=== PATIENT | male | born 1985 | race Caucasian/White ===

== ENCOUNTER 2022-12-06 11:26 | Outpatient (AMB) | payer BC, SELFPAY ==
[2022-12-06 11:29] VITALS: BP 110/80; PULSE 73; O2SAT 99; BMI 29.2
--- NOTE | 2022-12-06 11:29 | A.OFFPC_ITS ---
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 Allergies No Known Allergies Allergy (Verified 12/06/22 11:47) Medication List - Last Reconciled 12/06/22 by YADI Alexander Adderall XR 20 mg (dextroamphetamine-amphetamine) 20 mg PO QAM 30 days NS albuterol sulfate 90 mcg/actuation (ProAir HFA) 2 puffs inhalation Q6H PRN citalopram 30 mg (1.5 x 20 mg) PO DAILY 90 days montelukast 10 mg PO QPM Tobacco use date assessed: 12/06/22 Dental Screening Dental Screen Date: 12/06/22 Did you have a dental visit in the last 12 months?: No Did you have a dental problem in the last 6 months where you did not have access to dental care?: No HPI HPI Comments History of Present Illness Details 37-year-old male past medical history significant for ADHD, asthma, generalized anxiety disorder. Patient of [place] last seen in May. Patient presents today for medication follow up. Patient requesting new prescription for Adderall XR 20 mg daily will allow for substitutions for the generic brand. Patient states he previously tolerated generic brand of lateral however due to the previous shortage he was requiring name brand.New prescription sent stating to allow for substitutions. Patient denies any acute complaints at this time. [facility] Medical History Asthma Mood disorder Tobacco abuse Surgical History No pertinent past surgical history Family History Father Alcoholism Mother No problems noted. Paternal Grandfather Prostate cancer Social History Housing: Apartment Patient Tobacco Use Status: Current everyday Tobacco user Tobacco use type: Cigarette Cigarettes Per Day: 12 e-Cigarette/Vaping Use: Never Used Second Hand Smoke Exposure: No service: No Current occupational status: employed Cognitive needs: No Hearing needs: No Vision needs: No Questionnaire Thrive Questionnaire Date Thrive assessed: 05/22/22 AUDIT C Alcohol Use Questionnaire (AUDIT-C) 1. How often do you have a drink containing alcohol?: Never 3. How often do you have six or more drinks on one occasion?: Never Total Score: 0 Score Reviewed/Action Taken: No DAVID-7 AMB Questionnaire DAVID-7 Date DAVID - 7 assessed: 05/22/22 Source: Developed by Drs. Reynold Amaya, Shanice Ngo, Huey Rivas and colleagues, with an educational letty from [email or web address]. Review of Systems Const Denies chills, Denies fatigue, Denies fever(s) and Denies poor appetite Eyes Denies no additional complaints ENT Reports Normal hearing present Card Denies chest pain, Denies syncope, Denies rapid heart rate and Denies dyspnea Resp Denies cough and Denies dyspnea GI Denies change in stool character, Denies constipation, Denies diarrhea, Denies nausea and Denies vomiting Denies dysuria, Denies urinary frequency and Denies urinary urgency Neuro Reports Normal hearing present, Denies confusion and Denies syncope Psych Denies confusion Endo Denies fatigue Physical exam (Primary Care) Vital Signs: Last Vital Signs Pulse 73 12/06/22 11:29 BP 110/80 12/06/22 11:29 Pulse Ox 99 12/06/22 11:29 Oxygen Delivery Method Room Air 12/06/22 11:29 BMI result Body Mass Index 29.2 Tobacco/Smoking Status: Tobacco use Status Tobacco use date assessed 12/06/22 12/06/22 11:34 Patient Tobacco Use Status Current everyday Tobacco 12/06/22 11:34 Tobacco use type Cigarette 12/06/22 11:34 e-Cigarette/Vaping Use Never Used 12/06/22 11:34 Thrive Assessment: Date of Thrive Assessment Date Thrive assessed 05/22/22 12/06/22 11:34 Const General: No confusion Orientation/consciousness: No confusion HENMT Head: Yes normocephalic and Yes atraumatic Eyes Conjunctivae: conjunctivae normal Chest Chest palpation & inspection: normal inspection of the chest Resp Effort & Inspection: normal respiratory effort Auscultation: clear to auscultation bilaterally, no crackles, no rhonchi and no wheezes Cardio Rate: regular rate Rhythm: regular rhythm Heart sounds: S1 normal heart sound present and S2 normal heart sound present GI Inspection: Yes normal to inspection Neuro General: No confusion Cranial nerves: Yes Normal hearing present Extrem General: No edema Assessment and Plan Assessment & Plan (1) Asthma: Code(s): J45.909 - Unspecified asthma, uncomplicated Plan: Continue on albuterol as needed for shortness of breath and wheezing. (2) ADHD (attention deficit hyperactivity disorder): Code(s): F90.9 - Attention-deficit hyperactivity disorder, unspecified type Qualifiers: Attention deficit-hyperactivity disorder type: predominantly inattentive Qualified Code(s): F90.0 - Attention-deficit hyperactivity disorder, predominantly inattentive type Plan: Continue on Adderall XR 20 mg daily. Prescription sent to lab substitutions for generic brand Adderall as requested by patient. (3) Generalized anxiety disorder: Code(s): F41.1 - Generalized anxiety disorder Plan: Continue on citalopram 30 mg daily. Plan Follow-up with PCP in 3 months. Medications: Changed From Adderall XR 20 mg (dextroamphetamine-amphetamine) 20 mg PO QAM 30 days 30 caps 0RF NS F90.9 - Attention-deficit hyperactivity disorder, unspecified type To dextroamphetamine-amphetamine 20 mg ER (Adderall XR) 20 mg PO QAM 30 caps 0RF 30 days F90.9 - Attention-deficit hyperactivity disorder, unspecified type Coding Level of Care Code Est Pt Level 3 (14642) Diagnoses Asthma J45.909 ADHD (attention deficit hyperactivity disorder) F90.0 Attention deficit-hyperactivity disorder type: predominantly inattentive Generalized anxiety disorder F41.1
== END 2022-12-06 11:55 | disposition home or self-care (01) ==
PROVIDERS: PCP Physician Assistant; Visit Provider Nurse Practitioner Family
DX: J45.909 Unspecified asthma, uncomplicated (principal); F90.0 Attention-deficit hyperactivity disorder, predominantly inattentive type; F41.1 Generalized anxiety disorder
CPT/HCPCS: 99213

== ENCOUNTER 2023-01-03 14:43 | Outpatient (AMB) | payer BC, SELFPAY ==
[2023-01-03 14:52] VITALS: BP 118/72; PULSE 70; O2SAT 99; BMI 29.1
--- NOTE | 2023-01-03 14:52 | MHC.PC.OV ---
Vital Signs 01/03/23 14:52 Height 5 ft 9 in Weight 197 lb 2 oz BMI 29.1 BP 118/72 Blood Pressure Location Lt brachial Position Sitting Pulse 70 Pulse Source Pulse Oximeter Pulse Oximetry (%) 99 Oxygen Delivery Method Room Air Intake Visit Reasons: PE Intake Note: Patient is here today for a physical. 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 Accompanied by: Self / Same As Patient Allergies No Known Allergies Allergy (Verified 01/03/23 15:08) Medication List - Last Reconciled 01/03/23 by Dima Hill PA-C albuterol sulfate 90 mcg/actuation (ProAir HFA) 2 puffs inhalation Q6H PRN citalopram 30 mg (1.5 x 20 mg) PO DAILY 90 days dextroamphetamine-amphetamine 20 mg ER (Adderall XR) 20 mg PO QAM 30 days Tobacco use date assessed: 12/06/22 Dental Screening Dental Screen Date: 01/03/23 Did you have a dental visit in the last 12 months?: No Did you have a dental problem in the last 6 months where you did not have access to dental care?: No Was dental information given to patient?: Patient declined HPI PE HPI Details Patient is a 37-year-old male here today for an annual physical. Patient's past medical history significant for ADHD, asthma, generalized anxiety disorder... . ADHD: Has had ADHD since childhood has been on Adderall for many years. Continues on will dose 20 mg Adderall without any side effect. Continues to hold a full-time job. .. Smoker: Does admit to still smoking electronic cigarettes vape. Has stop smoking cigarettes. Vaccines: Up-to-date with COVID vaccine, tetanus vaccine, Declines flu vaccine [facility] Medical History Asthma Mood disorder Tobacco abuse Surgical History No pertinent past surgical history Family History Father Alcoholism Mother No problems noted. Paternal Grandfather Prostate cancer Social History (Updated 01/03/23 @ 15:12 by Dima Hill PA-C) Housing: Apartment Alcohol intake: never Patient Tobacco Use Status: Current everyday Tobacco user Tobacco use type: Cigarette Cigarettes Per Day: 12 e-Cigarette/Vaping Use: Never Used Second Hand Smoke Exposure: No Substance Use Type: Marijuana service: No Current occupational status: employed Current occupation: [employer] Cognitive needs: No Hearing needs: No Vision needs: No Questionnaire Thrive Questionnaire Date Thrive assessed: 05/22/22 DAVID-7 AMB Questionnaire DAVID-7 Date DAVID - 7 assessed: 05/22/22 Source: Developed by Drs. Reynold Amaya, Shanice Ngo, Huey Rivas and colleagues, with an educational letty from [employer]. Physical exam (Primary Care) Vital Signs: Last Vital Signs Pulse 70 01/03/23 14:52 BP 118/72 01/03/23 14:52 Pulse Ox 99 01/03/23 14:52 Oxygen Delivery Method Room Air 01/03/23 14:52 BMI result Body Mass Index 29.1 Tobacco/Smoking Status: Tobacco use Status Tobacco use date assessed 12/06/22 01/03/23 14:56 Patient Tobacco Use Status Current everyday Tobacco 01/03/23 14:56 Tobacco use type Cigarette 01/03/23 14:56 e-Cigarette/Vaping Use Never Used 01/03/23 14:56 Thrive Assessment: Date of Thrive Assessment Date Thrive assessed 05/22/22 01/03/23 14:56 Assessment and Plan Assessment & Plan (1) Physical exam: Comment: Reminded pt to get labs done Due for dental and eye exam Code(s): Z00.00 - Encounter for general adult medical examination without abnormal findings (2) ADHD (attention deficit hyperactivity disorder): Code(s): F90.9 - Attention-deficit hyperactivity disorder, unspecified type Qualifiers: Attention deficit-hyperactivity disorder type: predominantly inattentive Qualified Code(s): F90.0 - Attention-deficit hyperactivity disorder, predominantly inattentive type Plan: Patient continues on 20 mg Adderall over the last several years without any side effect or signs of abuse. Continues to work full-time. Will continue current dose of Adderall for his ADHD disorder. (3) Asthma: Code(s): J45.909 - Unspecified asthma, uncomplicated Qualifiers: Asthma severity: mild Asthma persistence: intermittent Asthma complication type: uncomplicated Qualified Code(s): J45.20 - Mild intermittent asthma, uncomplicated Plan: Asthma has been very well controlled with only p.r.n. use of albuterol inhaler. He reports stops smoking cigarettes and now vaping (4) Generalized anxiety disorder: Code(s): F41.1 - Generalized anxiety disorder Plan: Patient reports his anxiety has been well controlled current dose of Celexa 30 mg. (5) Weight loss: Code(s): R63.4 - Abnormal weight loss Plan: Has noted weight loss over the last 6 months a year. Does not note any change in activity or diet. Will check his TSH and CBC. Orders: Orders Comprehensive [place]. Panel Fast Today Z13.1 - Encounter for screening for diabetes mellitus TSH reflex Free T4 Today R63.4 - Abnormal weight loss Complete Blood Count no Diff Today R63.4 - Abnormal weight loss Medications: Refilled dextroamphetamine-amphetamine 20 mg ER (Adderall XR) 20 mg PO QAM 30 caps 0RF 30 days F90.9 - Attention-deficit hyperactivity disorder, unspecified type Coding Level of Care Code Est Pt Prev Care 18-39y([id number]) Diagnoses Physical exam Z00.00 ADHD (attention deficit hyperactivity disorder) F90.0 Attention deficit-hyperactivity disorder type: predominantly inattentive Asthma J45.20 Asthma severity: mild Asthma persistence: intermittent Asthma complication type: uncomplicated Generalized anxiety disorder F41.1 Weight loss R63.4
== END 2023-01-03 16:08 | disposition home or self-care (01) ==
PROVIDERS: PCP Physician Assistant; Visit Provider Physician Assistant
DX: Z00.00 Encounter for general adult medical examination without abnormal findings (principal); F90.0 Attention-deficit hyperactivity disorder, predominantly inattentive type; J45.20 Mild intermittent asthma, uncomplicated; F41.1 Generalized anxiety disorder; R63.4 Abnormal weight loss
CPT/HCPCS: 99395

== ENCOUNTER 2023-01-19 09:38 | Outpatient (REF) | payer BC, SELFPAY ==
[2023-01-19 10:31] LABS: Hematocrit 39.8 % (42.0-52.0); Hemoglobin 13.4 g/dl (14.0-18.0); Mean Corpuscular HGB Conc 33.7 g/dl (31.0-36.0); Mean Corpuscular Hemoglobin 29.5 pg (27.0-33.0); Mean Corpuscular Volume 87.5 fL (80.0-98.0); Mean Platelet Volume 9.4 fL (9.4-12.4); Platelet Count 253 X10*3/uL (160-400); Red Blood Count 4.55 X10*6/uL (4.60-5.80); White Blood Count 5.1 X10*3/uL (4.8-10.8)
[2023-01-19 11:28] LABS: Alanine Aminotransferase 17 U/L (0-40); Albumin Level 4.3 g/dL (3.5-5.0); Alkaline Phosphatase 42 U/L (39-117); Anion Gap 10 (12-20); Aspartate Amino Transferase 14 U/L (5-37); Bilirubin Total 0.5 mg/dL (0.0-1.0); Blood Urea Nitrogen 15 mg/dL (9-16); Calcium 9.3 mg/dL (8.4-10.2); Carbon Dioxide 29 mmol/L (22-29); Chloride 107 mmol/L (96-108); Estimated Glomerular Filt Rate > 60; Glucose Fasting 89 mg/dL (60-99); Potassium 4.3 mmol/L (3.3-5.1); Sodium 142 mmol/L (135-145)
[2023-01-19 11:34] LABS: TSH reflex Free T4 0.28 uIU/mL (0.32-4.0)
[2023-01-19 12:44] LABS: Free T4 (Free Thyroxine) 0.92 ng/dL (0.71-1.85)
== END 2023-01-19 09:39 | disposition home or self-care (01) ==
LOC: HO.LAB 09:38
PROVIDERS: PCP Physician Assistant; Visit Provider Physician Assistant
DX: Z13.1 Encounter for screening for diabetes mellitus (principal); R63.4 Abnormal weight loss
CPT/HCPCS: 36415; 80053; 84439; 84443; 85027

== ENCOUNTER 2023-07-08 13:18 | Outpatient (AMB) | payer BC, SELFPAY ==
[2023-07-08 13:22] VITALS: BP 122/70; PULSE 62; RESP 17; O2SAT 98; BMI 29.6
--- NOTE | 2023-07-08 13:22 | A.OFFPC_ITS ---
Vital Signs 07/08/23 13:22 Height 5 ft 9 in Weight 200 lb 4 oz BMI 29.6 BP 122/70 Blood Pressure Location Lt brachial Position Sitting Respiration 17 Pulse 62 Pulse Source Pulse Oximeter Pulse Oximetry (%) 98 Oxygen Delivery Method Room Air Intake Visit Reasons: ADHD medication F/U Shipping Assistant Required: No Accompanied by: Self / Same As Patient Allergies No Known Allergies Allergy (Verified 07/08/23 13:33) Medication List - Last Reconciled 07/08/23 by Dima Hill PA-C albuterol sulfate 90 mcg/actuation (ProAir HFA) 2 puffs inhalation Q6H PRN citalopram 30 mg (1.5 x 20 mg) PO DAILY 90 days dextroamphetamine-amphetamine 20 mg ER (Adderall XR) 20 mg PO QAM 30 days Tobacco use date assessed: 07/08/23 Dental Screening Dental Screen Date: 07/08/23 Did you have a dental visit in the last 12 months?: No Did you have a dental problem in the last 6 months where you did not have access to dental care?: No Was dental information given to patient?: No HPI ADHD medication F/U HPI Details atient is a 30-year-old male here today for follow-up visit Patient's past medical history significant for ADHD, asthma, generalized anxiety disorder... . ADHD: Has had ADHD since childhood has been on Adderall for many years. Continues on will dose 20 mg Adderall without any side effect. Continues to hold a full-time job. .. Smoker: Does admit to still smoking electronic cigarettes vape. [facility] Medical History Mood disorder Tobacco abuse Asthma Surgical History No pertinent past surgical history Family History Father Alcoholism Mother No problems noted. Paternal Grandfather Prostate cancer Social History Housing: Apartment Alcohol intake: never Patient Tobacco Use Status: Current everyday Tobacco user Tobacco use type: Cigarette Cigarettes Per Day: 12 e-Cigarette/Vaping Use: Never Used Second Hand Smoke Exposure: No Substance Use Type: Marijuana service: No Current occupational status: employed Current occupation: [employer] Cognitive needs: No Hearing needs: No Vision needs: No Questionnaire PHQ-9 Over the last 2 weeks, how often have you been bothered by any of the following problems? 1. Little interest or pleasure in doing things: not at all 2. Feeling down, depressed, or hopeless: not at all 3. Trouble falling or staying asleep, or sleeping too much: not at all 4. Feeling tired or having little energy: not at all 5. Poor appetite or overeating: not at all 6. Feeling bad about yourself - or that you are a failure or have let yourself or your family down: not at all 7. Trouble concentrating on things, such as reading the newspaper or watching television: not at all 8. Moving or speaking so slowly that other people could have noticed. Or the opposite - being so fidgety or restless that you have been moving around a lot more than usual: not at all 9. Thoughts that you would be better off or of hurting yourself in some way: not at all Total score: 0 Depression Screening Interpretation: Negative Depression Screening Done: Yes [id number] - PHQ-9 Billing: Yes Source: Developed by Drs. Reynold Amaya, Shanice Ngo, Huey Rivas and colleagues, with an educational letty from [employer]. Thrive Questionnaire Date Thrive assessed: 07/08/23 I am a: Patient What is your living situation today?: I have a steady place to live Within the past 12 months, did the food you bought not last and you didn't have the money to get more?: Never true Within the past 12 months, did you worry whether your food would run out before you got money to buy more?: Never true Do you have trouble paying for medicines?: No Do you have trouble getting transportation to medical appointments?: No Do you have trouble paying your heating and electricity bill?: No Do you have trouble taking care of your child, family member or friend?: No Do you have trouble with day-to-day activities such as bathing, preparing meals, shopping, managing finances, etc.?: No Are you currently unemployed and looking for a job?: No Are you interested in more education?: No Please select the resources that you would like help with: None Currently or been in a relationship where the following occur: no concerns repo rted THRIVE Score: 0 AUDIT C Alcohol Use Questionnaire (AUDIT-C) 1. How often do you have a drink containing alcohol?: Never 3. How often do you have six or more drinks on one occasion?: Never Total Score: 0 Score Reviewed/Action Taken: No DAVID-7 AMB Questionnaire DAVID-7 Date DAVID - 7 assessed: 07/08/23 Feeling nervous, anxious, or on edge: 0 = Not at all Not being able to stop or control worryin = Not at all Worrying too much about different things: 0 = Not at all Trouble relaxin = Not at all Being so restless that it is hard to sit still: 0 = Not at all Becoming easily annoyed or irritable: 0 = Not at all Feeling afraid as if something awful might happen: 0 = Not at all Total DAVID-7 score (0-4 normal; 5-9 mild; 10-14 moderate; 15-21 severe): 0 Source: Developed by Drs. Reynold Amaya, Shanice Ngo, Huey Rivas and colleagues, with an educational letty from [employer]. DAVID-7 Assessment Billing DAVID-7 Assessment Tool: DAVID-7 Assessment [id number] Review of Systems Const Denies headache(s) Eyes Denies loss of vision ENT Denies vertigo, Denies dizziness, Denies headache(s) and Denies sore throat Card Denies chest pain, Denies leg edema and Denies lightheadedness Resp Denies cough, Denies hemoptysis and Denies wheezing GI Denies abdominal pain, Denies melena, Denies constipation, Denies diarrhea and Denies vomiting Denies dysuria, Denies urinary frequency and Denies urinary urgency Musc Denies arthralgias, Denies joint swelling, Denies numbness and Denies tingling Neuro Denies Abnormal speech present, Denies behavioral changes, Denies vertigo, Denies dizziness, Denies headache(s), Denies loss of vision, Denies memory loss, Denies numbness and Denies tingling Psych Denies anxiety, Denies behavioral changes, Denies depression, Denies memory loss and Denies panic attacks Reid/Lymph Denies easy bleeding and Denies easy bruising Aller/Immun Denies wheezing Physical exam (Primary Care) Vital Signs: Last Vital Signs Pulse 62 07/08/23 13:22 Resp 17 07/08/23 13:22 BP 122/70 07/08/23 13:22 Pulse Ox 98 07/08/23 13:22 Oxygen Delivery Method Room Air 07/08/23 13:22 BMI result Body Mass Index 29.6 Tobacco/Smoking Status: Tobacco use Status Tobacco use date assessed 07/08/23 07/08/23 13:27 Patient Tobacco Use Status Current everyday Tobacco 07/08/23 13:27 Tobacco use type Cigarette 07/08/23 13:27 e-Cigarette/Vaping Use Never Used 07/08/23 13:27 PHQ-9: PHQ-9 Score PHQ-9: Total score 0 07/08/23 13:27 Depression Screening Interpretation: Negative Thrive Assessment: Date of Thrive Assessment Date Thrive assessed 07/08/23 07/08/23 13:27 Currently or been in a relationship where the following occur: no concerns reported Const General: healthy appearing, no acute distress, alert and awake Nutritional Appearance: well nourished Orientation/consciousness: oriented to person, oriented to place and oriented to time HENMT Ears: TM's normal bilaterally General nose exam: Normal nasal mucous membranes and turbinates present Eyes Conjunctivae: conjunctivae normal Sclerae: sclerae normal Pupils: Equal, round and reactive pupils present Neck Neck: Yes no lymphadenopathy and Yes no JVD Thyroid: Thyroid normal Carotids: no bruits Resp Effort & Inspection: normal respiratory effort and not tachypneic Auscultation: no crackles, no rales, no rhonchi and no wheezes Cardio Rate: regular rate Rhythm: regular rhythm Heart sounds: no murmurs and normal S1 and S2 GI Palpation (GI): Soft to palpation, nontender, no hepatomegaly and no splenomegaly Auscultation: normal bowel sounds Skin General skin exam: no rashes or lesions noted and dry skin Neuro General: oriented to person, oriented to place and oriented to time Cranial nerves: Yes Equal, round and reactive pupils present Speech: No Abnormal speech present Gait exam (Neuro): Normal gait present Motor exam (neuro): no tremor noted Extrem Right upper extremity: full ROM Left upper extremity: full ROM Right lower extremity: full ROM; no edema Left lower extremity: full ROM; no edema Psych Mental Status: mental status grossly normal Speech and movement: Normal speech and movement present Affect: normal affect Attitude: cooperative Thought process: Normal thought process present Assessment and Plan Assessment & Plan (1) ADHD (attention deficit hyperactivity disorder): Code(s): F90.9 - Attention-deficit hyperactivity disorder, unspecified type Qualifiers: Attention deficit-hyperactivity disorder type: predominantly inattentive Qualified Code(s): F90.0 - Attention-deficit hyperactivity disorder, predominantly inattentive type Plan: Patient continues on 20 mg Adderall over the last several years without any side effect or signs of abuse. Continues to work full-time. Will continue current dose of Adderall for his ADHD disorder. Orders: Orders TSH reflex Free T4 Today R79.89 - Other specified abnormal findings of blood chemistry Medications: Refilled dextroamphetamine-amphetamine 20 mg ER (Adderall XR) 20 mg PO QAM 30 days 30 caps 0RF F90.9 - Attention-deficit hyperactivity disorder, unspecified type Coding Level of Care Code Est Pt Level 3 (46774) Diagnoses Attention deficit hyperactivity disorder (ADHD), predominantly inattentive type F90.0 Attention deficit-hyperactivity disorder type: predominantly inattentive Additional Codes DAVID-7 Assessment Billing - DAVID-7 Assessment Tool: DAVID-7 Assessment [id number] ([id number])
== END 2023-07-08 13:42 | disposition home or self-care (01) ==
PROVIDERS: PCP Physician Assistant; Visit Provider Physician Assistant
DX: F90.0 Attention-deficit hyperactivity disorder, predominantly inattentive type (principal)
CPT/HCPCS: 99213

== ENCOUNTER 2023-10-08 14:16 | Outpatient (AMB) | payer BC, SELFPAY ==
--- NOTE | 2023-10-08 14:12 | MHC.PC.OV ---
Intake Visit Reasons: f/u ADHD Telehealth Measurer Machine Required: No Accompanied by: Self / Same As Patient Allergies No Known Allergies Allergy (Verified 10/08/23 14:30) Medication List - Last Reconciled 10/08/23 by Dima Hill PA-C albuterol sulfate 90 mcg/actuation (ProAir HFA) 2 puffs inhalation Q6H PRN citalopram 30 mg (1.5 x 20 mg) PO DAILY 90 days dextroamphetamine-amphetamine 20 mg ER (Adderall XR) 20 mg PO QAM 30 days Tobacco use date assessed: 07/08/23 Dental Screening Dental Screen Date: 07/08/23 HPI f/u ADHD Telehealth HPI Details Patient is a 38-year-old male being evaluated today via telephone only. Patient's past medical history significant for ADHD, asthma, generalized anxiety disorder... . ADHD: Has had ADHD since childhood has been on Adderall for many years. Continues on will dose 20 mg Adderall without any side effect. Continues to hold a full-time job. .. Smoker: Does admit to still smoking electronic cigarettes vape. Does report needing a refill on his albuterol inhaler as he reports that during allergy season he likes to have an albuterol inhaler due allergy related cough PFSH Medical History Mood disorder Tobacco abuse Asthma Surgical History No pertinent past surgical history Family History Father Alcoholism Mother No problems noted. Paternal Grandfather Prostate cancer Social History Housing: Apartment Alcohol intake: never Patient Tobacco Use Status: Current everyday Tobacco user Tobacco use type: Cigarette Cigarettes Per Day: 12 e-Cigarette/Vaping Use: Never Used Second Hand Smoke Exposure: No Substance Use Type: Marijuana service: No Current occupational status: employed Current occupation: [employer] Cognitive needs: No Hearing needs: No Vision needs: No Questionnaire Thrive Questionnaire Date Thrive assessed: 07/08/23 DAVID-7 AMB Questionnaire DAVID-7 Date DAVID - 7 assessed: 07/08/23 Source: Developed by Drs. Reynold Amaya, Shanice Ngo, Huey Rivas and colleagues, with an educational letty from [employer]. Review of Systems Const Denies headache(s) Eyes Denies loss of vision ENT Denies vertigo, Denies dizziness, Denies headache(s) and Denies sore throat Card Denies chest pain, Denies leg edema and Denies lightheadedness Resp Denies cough, Denies hemoptysis and Denies wheezing GI Denies abdominal pain, Denies melena, Denies constipation, Denies diarrhea and Denies vomiting Denies dysuria, Denies urinary frequency and Denies urinary urgency Musc Denies arthralgias, Denies joint swelling, Denies numbness and Denies tingling Neuro Denies behavioral changes, Denies vertigo, Denies dizziness, Denies headache(s), Denies loss of vision, Denies memory loss, Denies numbness and Denies tingling Psych Denies anxiety, Denies behavioral changes, Denies depression, Denies memory loss and Denies panic attacks Reid/Lymph Denies easy bleeding and Denies easy bruising Aller/Immun Denies wheezing Physical exam (Primary Care) Tobacco/Smoking Status: Tobacco use Status Tobacco use date assessed 07/08/23 10/08/23 14:12 Patient Tobacco Use Status Current everyday Tobacco 10/08/23 14:12 Tobacco use type Cigarette 10/08/23 14:12 e-Cigarette/Vaping Use Never Used 10/08/23 14:12 Thrive Assessment: Date of Thrive Assessment Date Thrive assessed 07/08/23 10/08/23 14:12 Telehealth Telehealth Telehealth Platform: Telephone Location of provider rendering services: practice address Location of patient: address on file Patient Identification confirmed using: Name, : Yes Telehealth method: voice only Patient verbally consented to treatment: Yes Patient verbally consented to billing insurance company: Yes Patient informed of any privacy concerns related to visit: Yes Minutes spent on Phone/Video with Pt.: 11 Assessment and Plan Assessment & Plan (1) ADHD (attention deficit hyperactivity disorder): Code(s): F90.9 - Attention-deficit hyperactivity disorder, unspecified type Qualifiers: Attention deficit-hyperactivity disorder type: predominantly inattentive Qualified Code(s): F90.0 - Attention-deficit hyperactivity disorder, predominantly inattentive type Plan: Patient continues on 20 mg Adderall over the last several years without any side effect or signs of abuse. Continues to work full-time. Will continue current dose of Adderall for his ADHD disorder. Medications: Refilled albuterol sulfate 90 mcg/actuation (ProAir HFA) 2 puffs inhalation Q6H PRN 8.5 grams 3RF bronchospasm J45.909 - Unspecified asthma, uncomplicated Coding Level of Care Code Tele Est Pt Level 3 (81420) Diagnoses Attention deficit hyperactivity disorder (ADHD), predominantly inattentive type F90.0 Attention deficit-hyperactivity disorder type: predominantly inattentive
== END 2023-10-08 15:31 | disposition home or self-care (01) ==
LOC: HO.HMGH 14:16
PROVIDERS: PCP Physician Assistant; Visit Provider Physician Assistant
DX: F90.0 Attention-deficit hyperactivity disorder, predominantly inattentive type (principal)
CPT/HCPCS: 99442

== ENCOUNTER 2024-01-08 07:55 | Outpatient (AMB) | payer BC, SELFPAY ==
[2024-01-08 07:58] VITALS: BP 116/68; PULSE 56; O2SAT 97; BMI 29.7
--- NOTE | 2024-01-08 07:58 | MHC.PC.OV ---
Vital Signs 01/08/24 07:58 Height 5 ft 9 in Weight 201 lb BMI 29.7 BP 116/68 Blood Pressure Location Lt brachial Position Sitting Pulse 56 Pulse Source Pulse Oximeter Pulse Oximetry (%) 97 Oxygen Delivery Method Room Air Intake Visit Reasons: PE Allergies No Known Allergies Allergy (Verified 01/08/24 08:15) Medication List - Last Reconciled 01/08/24 by Dima Hill PA-C albuterol sulfate 90 mcg/actuation (ProAir HFA) 2 puffs inhalation Q6H PRN citalopram 30 mg (1.5 x 20 mg) PO DAILY 90 days dextroamphetamine-amphetamine 20 mg ER (Adderall XR) 20 mg PO QAM 30 days Tobacco use date assessed: 01/08/24 Dental Screening Dental Screen Date: 01/08/24 Did you have a dental visit in the last 12 months?: No Did you have a dental problem in the last 6 months where you did not have access to dental care?: No Was dental information given to patient?: Patient has dentist HPI PE HPI Details Patient is a 38-year-old male here today for routine annual physical Patient's past medical history significant for ADHD, asthma, generalized anxiety disorder... . ADHD: Has had ADHD since childhood has been on Adderall for many years. Continues on will dose 20 mg Adderall without any side effect. Continues to hold a full-time job. .. Smoker: Does admit to still smoking electronic cigarettes vape. .. Asthma: Reports his asthma is very well controlled, occasion does have chest tightness at night though is controlled with an albuterol inhaler. Otherwise denies any asthma exacerbations. Vaccines: Up-to-date with COVID vaccine, tetanus vaccine, Declines flu vaccine , declines pneumonia vaccine [facility] Medical History Mood disorder Tobacco abuse Asthma Surgical History No pertinent past surgical history Family History Father Alcoholism Mother No problems noted. Paternal Grandfather Prostate cancer Social History (Updated 01/08/24 @ 08:14 by Dima Sergio, PA-C) Housing: Apartment Alcohol intake: never Patient Tobacco Use Status: Current everyday Tobacco user Tobacco use type: Cigarette Cigarettes Per Day: 12 e-Cigarette/Vaping Use: Never Used Second Hand Smoke Exposure: No Substance Use Type: Marijuana service: No Current occupational status: employed Current occupation: [employer] Cognitive needs: No Hearing needs: No Vision needs: Yes Questionnaire PHQ-9 Over the last 2 weeks, how often have you been bothered by any of the following problems? 1. Little interest or pleasure in doing things: not at all 2. Feeling down, depressed, or hopeless: not at all 3. Trouble falling or staying asleep, or sleeping too much: more than half the days 4. Feeling tired or having little energy: not at all 5. Poor appetite or overeating: not at all 6. Feeling bad about yourself - or that you are a failure or have let yourself or your family down: not at all 7. Trouble concentrating on things, such as reading the newspaper or watching television: not at all 8. Moving or speaking so slowly that other people could have noticed. Or the opposite - being so fidgety or restless that you have been moving around a lot more than usual: not at all 9. Thoughts that you would be better off or of hurting yourself in some way: not at all Total score: 2 Depression Screening Interpretation: Negative Depression Screening Done: Yes 54561 - PHQ-9 Billing: Yes Source: Developed by Drs. Reynold Amaya, Shanice Ngo, Huey Rivas and colleagues, with an educational letty from [employer]. Thrive Questionnaire Date Thrive assessed: 01/08/24 I am a: Patient What is your living situation today?: I have a steady place to live Within the past 12 months, did the food you bought not last and you didn't have the money to get more?: I choose not to answer this question Within the past 12 months, did you worry whether your food would run out before you got money to buy more?: I choose not to answer this question Do you have trouble paying for medicines?: I choose not to answer this question Do you have trouble getting transportation to medical appointments?: I choose not to answer this question Do you have trouble paying your heating and electricity bill?: I choose not to answer this question Do you have trouble taking care of your child, family member or friend?: I choose not to answer this question Do you have trouble with day-to-day activities such as bathing, preparing meals, shopping, managing finances, etc.?: I choose not to answer this question Are you currently unemployed and looking for a job?: I choose not to answer this question Are you interested in more education?: I choose not to answer this question Please select the resources that you would like help with: None Currently or been in a relationship where the following occur: I choose not to answer THRIVE Score: 0 AUDIT C Alcohol Use Questionnaire (AUDIT-C) 1. How often do you have a drink containing alcohol?: Never Total Score: 0 DAVID-7 AMB Questionnaire DAVID-7 Date DAVID - 7 assessed: 01/08/24 Feeling nervous, anxious, or on edge: 1 = Several days Not being able to stop or control worryin = Not at all Worrying too much about different things: 0 = Not at all Trouble relaxin = Not at all Being so restless that it is hard to sit still: 0 = Not at all Becoming easily annoyed or irritable: 0 = Not at all Feeling afraid as if something awful might happen: 0 = Not at all Total DAVID-7 score (0-4 normal; 5-9 mild; 10-14 moderate; 15-21 severe): 1 Source: Developed by Drs. Reynold Amaya, Shanice Ngo, Huey Rivas and colleagues, with an educational letty from [employer]. ACT Questionnaire In the past 4 weeks, how much of the time did your asthma keep you from getting as much done at work, school or at home?: None of the time During the past 4 weeks, how often have you had shortness of breath?: Not at all During the past 4 weeks, how often did your asthma symptoms wake you up at night or earlier than usual in the morning?: Once or twice per week During the past 4 weeks, how often have you had to use your rescue inhaler or nebulizer medication?: Not at all How would you rate your asthma control during the past 4 weeks?: Completely controlled ACT Interpretation: Negative Score: 24 Review of Systems Const Denies body aches, Denies chills, Denies excessive sweating, Denies fatigue, Denies fever(s) and Denies headache(s) Eyes Denies blurry vision ENT Denies dysphagia, Denies vertigo, Denies dizziness, Denies headache(s), Denies hearing loss and Denies tinnitus Card Denies chest pain, Denies chest pain with activity, Denies syncope, Denies irregular heart rhythm and Denies dyspnea Resp Denies chest congestion, Denies cough, Denies hemoptysis, Denies dyspnea and Denies wheezing GI Denies abdominal pain, Denies melena, Denies hematochezia, Denies coffee ground emesis, Denies dysphagia, Denies diarrhea, Denies nausea and Denies vomiting Denies difficulty urinating, Denies dysuria, Denies urinary frequency, Denies urinary hesitancy and Denies urinary urgency Musc Denies arthralgias, Denies limited range of motion, Denies muscle cramps and Denies muscle weakness Skin/Breast Denies rash and Denies skin ulcer Neuro Denies Abnormal speech present, Denies confusion, Denies vertigo, Denies dizziness, Denies syncope, Denies headache(s), Denies memory loss and Denies seizure-like activity Psych Denies anxiety, Denies confusion, Denies depression, Denies memory loss, Denies panic attacks and Denies paranoia Endo Denies excessive sweating, Denies fatigue, Denies flushing, Denies polydipsia and Denies polyuria Aller/Immun Denies wheezing Physical exam (Primary Care) Vital Signs: Oxygen Delivery Method Room Air 01/08/24 07:58 BMI result Body Mass Index 29.7 Tobacco/Smoking Status: Tobacco use Status Tobacco use date assessed 07/08/23 01/08/24 08:00 Patient Tobacco Use Status Current everyday Tobacco 01/08/24 08:00 Tobacco use type Cigarette 01/08/24 08:00 e-Cigarette/Vaping Use Never Used 01/08/24 08:00 Are you ready to quit: No Tobacco cessation counseling provided: Yes Items discussed: Nicotine replacement Relapse Prevention: discussed the importance of a supportive environment, discussed negative mood or depression after quitting, weight gain after smoking is common and discussed dietary, exercise and/or lifestyle changes Number of minutes spent counselin CPT code: 18436 - 4-10 Minutes Depression Screening Interpretation: Negative Thrive Assessment: Date of Thrive Assessment Date Thrive assessed 07/08/23 01/08/24 08:00 Currently or been in a relationship where the following occur: I choose not to answer Const General: cooperative, comfortable, no acute distress, alert and awake; No confusion Orientation/consciousness: oriented to person, oriented to place, patient oriented x3 and No confusion HENMT Head: Yes normocephalic Ears: external ears normal and TM's normal bilaterally Face and sinus: No sinus tenderness Mouth: Normal oral and palatal mucosa present and tongue normal Teeth and gingiva: dentition normal and gingiva normal Throat: Yes posterior oropharynx normal, Yes tonsils normal and Yes uvula midline Eyes Conjunctivae: conjunctivae normal Sclerae: sclerae normal Pupils: Equal, round and reactive pupils present EOM: EOMs intact bilaterally Direct Ophthalmoscopy: No no photophobia Neck Neck: Yes no lymphadenopathy, No tender and Yes no JVD Thyroid: Thyroid normal Carotids: no bruits Chest Chest palpation & inspection: no tenderness Resp Effort & Inspection: normal respiratory effort, no audible wheezes, not labored and no stridor Auscultation: no crackles, no rales, no rhonchi and no wheezes Cardio Jugular venous distension: no JVD Rate: regular rate, not bradycardic and not tachycardic Rhythm: regular rhythm Bruits: no carotid bruits Peripheral pulses: Peripheral pulses 2+ throughout GI Inspection: Yes normal to inspection, No abdominal wall ecchymosis and No visible herniation Palpation (GI): Soft to palpation, nontender, no guarding, not rigid and No hepatosplenomegaly present Auscultation: normoactive bowel sounds General: Yes no CVA tenderness Back/Spine/Pelvis Back: no CVA tenderness and No back tenderness Cervical Spine: cervical ROM normal Thoracic/Lumbar Spine: thoracic and lumbar spine normal to inspection, straight leg raise negative bilaterally, No thoraco-lumbar ROM limited and No lumbar spinal tenderness Skin Lesions: no lesions Rashes: no rashes Wounds: no wounds Neuro General: oriented to person, oriented to place, patient oriented x3, CN's II-XI intact bilaterally and No confusion Cranial nerves: Yes Equal, round and reactive pupils present and Yes Normal accommodation reflex present Cognition (Neuro): normal cognition Speech: No Abnormal speech present Gait exam (Neuro): Normal gait present Motor exam (neuro): 5/5 motor strength present throughout Extrem Right upper extremity: full ROM; no cyanosis Left upper extremity: full ROM; no cyanosis Right lower extremity: no edema Left lower extremity: no edema Psych Appearance: grossly normal Mental Status: mental status grossly normal Affect: normal affect Attitude: cooperative Thought process: Normal thought process present Assessment and Plan Assessment & Plan (1) Physical exam: Comment: Reminded pt to get labs done Due for dental and eye exam Code(s): Z00.00 - Encounter for general adult medical examination without abnormal findings (2) ADHD (attention deficit hyperactivity disorder): Code(s): F90.9 - Attention-deficit hyperactivity disorder, unspecified type Qualifiers: Attention deficit-hyperactivity disorder type: predominantly inattentive Qualified Code(s): F90.0 - Attention-deficit hyperactivity disorder, predominantly inattentive type Plan: Patient continues on 20 mg Adderall over the last several years without any side effect or signs of abuse. Continues to work full-time. Will continue current dose of Adderall for his ADHD disorder. (3) Asthma: Code(s): J45.909 - Unspecified asthma, uncomplicated Qualifiers: Asthma severity: mild Asthma persistence: intermittent Asthma complication type: uncomplicated Qualified Code(s): J45.20 - Mild intermittent asthma, uncomplicated Plan: Asthma has been very well controlled with only p.r.n. use of albuterol inhaler. Unfortunately patient continues to vape cigarettes (4) Generalized anxiety disorder: Code(s): F41.1 - Generalized anxiety disorder Plan: Patient reports his anxiety has been well controlled current dose of Celexa 30 mg. (5) Low TSH level: Code(s): R79.89 - Other specified abnormal findings of blood chemistry Plan: Was found to have low TSH in the fall of 2022, advised to repeat lab testing to evaluate TSH. Normal T4 noted. Orders: Orders Complete Blood Count no Diff Today Z13.1 - Encounter for screening for diabetes mellitus Comprehensive [place]. Panel Fast Today Z13.1 - Encounter for screening for diabetes mellitus Coding Level of Care Code Est Pt Prev Care [id number]([id number]) Diagnoses Physical exam Z00.00 Attention deficit hyperactivity disorder (ADHD), predominantly inattentive type F90.0 Attention deficit-hyperactivity disorder type: predominantly inattentive Mild intermittent asthma without complication J45.20 Asthma severity: mild Asthma persistence: intermittent Asthma complication type: uncomplicated Generalized anxiety disorder F41.1 Low TSH level R79.89 Additional Codes Vital Signs *Quality* - CPT code: 75972 - 4-10 Minutes ([id number])
== END 2024-01-08 08:21 | disposition home or self-care (01) ==
PROVIDERS: PCP Physician Assistant; Visit Provider Physician Assistant
DX: Z00.00 Encounter for general adult medical examination without abnormal findings (principal); F90.0 Attention-deficit hyperactivity disorder, predominantly inattentive type; J45.20 Mild intermittent asthma, uncomplicated; F41.1 Generalized anxiety disorder; R79.89 Other specified abnormal findings of blood chemistry
CPT/HCPCS: 99395; 99406

== ENCOUNTER 2024-07-13 15:40 | Outpatient (AMB) | payer BC, SELFPAY ==
[2024-07-13 15:55] VITALS: PULSE 72; TEMP 36.2; O2SAT 98; BMI 29.4
--- NOTE | 2024-07-13 15:55 | MHC.PC.OV ---
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 Accompanied by: Self / Same As Patient Allergies No Known Allergies Allergy (Verified 07/13/24 15:59) Medication List - Last Reconciled 07/13/24 by Dima Hill PA-C albuterol sulfate 90 mcg/actuation (ProAir HFA) 2 puffs inhalation Q6H PRN citalopram 30 mg (1.5 x 20 mg) PO DAILY 90 days dextroamphetamine-amphetamine 20 mg ER (Adderall XR) 20 mg PO QAM 30 days Tobacco use date assessed: 07/13/24 Dental Screening Dental Screen Date: 07/13/24 Did you have a dental visit in the last 12 months?: No Did you have a dental problem in the last 6 months where you did not have access to dental care?: No Was dental information given to patient?: No HPI 6 mo f/u ADHD HPI Details Patient is a 39-year-old male here today for follow-up visit Patient's past medical history significant for ADHD, asthma, generalized anxiety disorder... . ADHD: Has had ADHD since childhood has been on Adderall for many years. Continues on will dose 20 mg Adderall without any side effect. Continues to hold a full-time job. .. Generalized anxiety disorder: Continues on Celexa therapy with good effect. .. Smoker: Does admit to still smoking electronic cigarettes vape. .. Asthma: Reports his asthma is very well controlled, occasion does have chest tightness at night though is controlled with an albuterol inhaler. Otherwise denies any asthma exacerbations. [facility] Medical History Mood disorder Tobacco abuse Asthma Surgical History No pertinent past surgical history Family History Father Alcoholism Mother No problems noted. Paternal Grandfather Prostate cancer Social History Housing: Apartment Alcohol intake: never Patient Tobacco Use Status: Current everyday Tobacco user Tobacco use type: Cigarette Cigarettes Per Day: 12 e-Cigarette/Vaping Use: Never Used Second Hand Smoke Exposure: No Substance Use Type: Marijuana service: No Current occupational status: employed Current occupation: [employer] Cognitive needs: No Hearing needs: No Vision needs: Yes Questionnaire PHQ-9 Over the last 2 weeks, how often have you been bothered by any of the following problems? 1. Little interest or pleasure in doing things: not at all 2. Feeling down, depressed, or hopeless: not at all 3. Trouble falling or staying asleep, or sleeping too much: not at all 4. Feeling tired or having little energy: not at all 5. Poor appetite or overeating: not at all 6. Feeling bad about yourself - or that you are a failure or have let yourself or your family down: not at all 7. Trouble concentrating on things, such as reading the newspaper or watching television: not at all 8. Moving or speaking so slowly that other people could have noticed. Or the opposite - being so fidgety or restless that you have been moving around a lot more than usual: not at all 9. Thoughts that you would be better off or of hurting yourself in some way: not at all Total score: 0 Depression Screening Interpretation: Negative Depression Screening Done: Yes 01857 - PHQ-9 Billing: Yes Source: Developed by Drs. Reynold Amaya, Shanice Ngo, Huey Rivas and colleagues, with an educational letty from [employer]. Thrive Questionnaire Date Thrive assessed: 07/13/24 I am a: Patient What is your living situation today?: I have a steady place to live Within the past 12 months, did the food you bought not last and you didn't have the money to get more?: Never true Within the past 12 months, did you worry whether your food would run out before you got money to buy more?: Never true Do you have trouble paying for medicines?: No Do you have trouble getting transportation to medical appointments?: No Do you have trouble paying your heating and electricity bill?: No Do you have trouble taking care of your child, family member or friend?: No Do you have trouble with day-to-day activities such as bathing, preparing meals, shopping, managing finances, etc.?: No Are you currently unemployed and looking for a job?: No Are you interested in more education?: No Please select the resources that you would like help with: None Currently or been in a relationship where the following occur: No concerns reported THRIVE Score: 0 AUDIT C Alcohol Use Questionnaire (AUDIT-C) 1. How often do you have a drink containing alcohol?: Never 3. How often do you have six or more drinks on one occasion?: Never Total Score: 0 DAVID-7 AMB Questionnaire DAVID-7 Date DAVID - 7 assessed: 07/13/24 Feeling nervous, anxious, or on edge: 0 = Not at all Not being able to stop or control worryin = Not at all Worrying too much about different things: 0 = Not at all Trouble relaxin = Not at all Being so restless that it is hard to sit still: 0 = Not at all Becoming easily annoyed or irritable: 0 = Not at all Feeling afraid as if something awful might happen: 0 = Not at all Total DAVID-7 score (0-4 normal; 5-9 mild; 10-14 moderate; 15-21 severe): 0 Source: Developed by Drs. Reynold Amaya, Shanice Ngo, Huey Rivas and colleagues, with an educational letty from [employer]. DAVID-7 Assessment Billing DAVID-7 Assessment Tool: DAVID-7 Assessment 51002 ACT Questionnaire In the past 4 weeks, how much of the time did your asthma keep you from getting as much done at work, school or at home?: None of the time During the past 4 weeks, how often have you had shortness of breath?: Not at all During the past 4 weeks, how often did your asthma symptoms wake you up at night or earlier than usual in the morning?: Not at all During the past 4 weeks, how often have you had to use your rescue inhaler or nebulizer medication?: Not at all How would you rate your asthma control during the past 4 weeks?: Completely controlled ACT Interpretation: Negative Score: 25 Review of Systems Const Denies headache(s) Eyes Denies loss of vision ENT Denies vertigo, Denies dizziness, Denies headache(s) and Denies sore throat Card Denies chest pain, Denies leg edema and Denies lightheadedness Resp Denies cough, Denies hemoptysis and Denies wheezing GI Denies abdominal pain, Denies melena, Denies constipation, Denies diarrhea and Denies vomiting Denies dysuria, Denies urinary frequency and Denies urinary urgency Musc Denies arthralgias, Denies joint swelling, Denies numbness and Denies tingling Neuro Denies Abnormal speech present, Denies behavioral changes, Denies vertigo, Denies dizziness, Denies headache(s), Denies loss of vision, Denies memory loss, Denies numbness and Denies tingling Psych Denies anxiety, Denies behavioral changes, Denies depression, Denies memory loss and Denies panic attacks Reid/Lymph Denies easy bleeding and Denies easy bruising Aller/Immun Denies wheezing Physical exam (Primary Care) Vital Signs: Last Vital Signs Temp 97.1 F 07/13/24 15:55 Pulse 72 07/13/24 15:55 Pulse Ox 98 07/13/24 15:55 Oxygen Delivery Method Room Air 07/13/24 15:55 BMI result Body Mass Index 29.4 Tobacco/Smoking Status: Tobacco use Status Tobacco use date assessed 01/08/24 07/13/24 15:55 Patient Tobacco Use Status Current everyday Tobacco 07/13/24 15:55 Tobacco use type Cigarette 07/13/24 15:55 e-Cigarette/Vaping Use Never Used 07/13/24 15:55 Are you ready to quit: No Tobacco cessation counseling provided: Yes Items discussed: Nicotine replacement Relapse Prevention: discussed the importance of a supportive environment, discussed negative mood or depression after quitting, weight gain after smoking is common and discussed dietary, exercise and/or lifestyle changes Number of minutes spent counselin CPT code: 84867 - 4-10 Minutes Depression Screening Interpretation: Negative Thrive Assessment: Date of Thrive Assessment Date Thrive assessed 07/13/24 07/13/24 15:55 Currently or been in a relationship where the following occur: No concerns reported Const General: healthy appearing, no acute distress, alert and awake Nutritional Appearance: well nourished Orientation/consciousness: oriented to person, oriented to place and oriented to time HENMT Ears: TM's normal bilaterally General nose exam: Normal nasal mucous membranes and turbinates present Eyes Conjunctivae: conjunctivae normal Sclerae: sclerae normal Pupils: Equal, round and reactive pupils present Neck Neck: Yes no lymphadenopathy and Yes no JVD Thyroid: Thyroid normal Carotids: no bruits Resp Effort & Inspection: normal respiratory effort and not tachypneic Auscultation: no crackles, no rales, no rhonchi and no wheezes Cardio Rate: regular rate Rhythm: regular rhythm Heart sounds: no murmurs and normal S1 and S2 GI Palpation (GI): Soft to palpation, nontender, no hepatomegaly and no splenomegaly Auscultation: normal bowel sounds Skin General skin exam: no rashes or lesions noted and dry skin Neuro General: oriented to person, oriented to place and oriented to time Cranial nerves: Yes Equal, round and reactive pupils present Speech: No Abnormal speech present Gait exam (Neuro): Normal gait present Motor exam (neuro): no tremor noted Extrem Right upper extremity: full ROM Left upper extremity: full ROM Right lower extremity: full ROM; no edema Left lower extremity: full ROM; no edema Psych Mental Status: mental status grossly normal Speech and movement: Normal speech and movement present Affect: normal affect Attitude: cooperative Thought process: Normal thought process present Coding Level of Care Code Est Pt Level 4 (19853) Diagnoses Attention deficit hyperactivity disorder (ADHD), predominantly inattentive type F90.0 Attention deficit-hyperactivity disorder type: predominantly inattentive Encounter for smoking cessation counseling Z71.6 Generalized anxiety disorder F41.1 Mild intermittent asthma without complication J45.20 Asthma severity: mild Asthma persistence: intermittent Asthma complication type: uncomplicated Additional Codes DAVID-7 Assessment Billing - DAVID-7 Assessment Tool: DAVID-7 Assessment 74896 ([id number]) PHQ-9 - 85368 - PHQ-9 Billing: Yes ([id number]) Asthma Control Questionnaire - ACT Interpretation: Negative ([id number]) Vital Signs *Quality* - CPT code: 41553 - 4-10 Minutes ([id number]) Assessment & Plan Assessment & Plan (1) ADHD (attention deficit hyperactivity disorder): Code(s): F90.9 - Attention-deficit hyperactivity disorder, unspecified type Category: Medical Qualifiers: Attention deficit-hyperactivity disorder type: predominantly inattentive Qualified Code(s): F90.0 - Attention-deficit hyperactivity disorder, predominantly inattentive type Plan: Patient has been doing well on Adderall 20 mg sent to release without any side effects. Continues to work in [employer] field. (2) Encounter for smoking cessation counseling: Code(s): Z71.6 - Tobacco abuse counseling Category: Medical Plan: Patient continues to smoke smokeless tobacco, counseled on discontinuing its use. (3) Generalized anxiety disorder: Code(s): F41.1 - Generalized anxiety disorder Category: Medical Plan: Patient's DAVID-7 score 0, has had a history of anxiety to which he takes SSRI therapy for with good effect. He is not interested in talking to a mental health therapist. (4) Asthma: Code(s): J45.909 - Unspecified asthma, uncomplicated Category: Medical Qualifiers: Asthma severity: mild Asthma persistence: intermittent Asthma complication type: uncomplicated Qualified Code(s): J45.20 - Mild intermittent asthma, uncomplicated Plan: Patient's asthma is reported as well controlled. Does have access to an albuterol inhaler though rarely has to use it. He denies any nighttime awakenings with asthma symptoms or recent asthma exacerbations. Orders: Orders TSH reflex Free T4 Today R79.89 - Other specified abnormal findings of blood chemistry Medications: Refilled dextroamphetamine-amphetamine 20 mg ER (Adderall XR) 20 mg PO QAM 30 days 30 caps 0RF F90.9 - Attention-deficit hyperactivity disorder, unspecified type
--- OUTSIDE RECORDS SUMMARY | 2024-07-13 18:30 | XMS_ITS | Clinical Summary ---
Author Organization [facility] Address [address] [place] [id number] Phone Care Team Providers Care Repair Servicer Name Role Phone Unavailable Primary Care Provider Unavailabl e Immunizations Immunization Administration Dates Next Due DTP 10/07/1990, 7,1985,1985,1985 Hep B, ped/adol 04/13/2003,10/18/1997,11/26/1996 Hib (HbOC) 03/28/1987 IPV 10/07/1990, 7,1985,1985 MMR 10/18/1997,11/01/1986 Td (adult) (MBL), 2 Lf tetan us toxoid, PF, adsorbed 07/11/1999 Social History Tobacco Use Types Packs/Day Years Used Date Smoking Tobacco: Never Assessed Sex and Gender Information Value Date Recorded Sex Assigned at Not on file Legal Sex Male 4:30 PM EDT Gender Identity Not on file Sexual Orientation Not on file Plan of Treatment Health Maintenance Due Date Last Done Comments Varicella Vaccines (1 of 2 - 13+ 2-dose series) 1998 DTaP,Tdap,and Td Vaccines (6 - Tdap) 07/12/1999 07/11/1999, 10/07/1990, 11/01/1986, Additional history exists Consider Men B Vaccine (1 of 2 - Bexsero 2-dose series) 2001 Influenza Vaccines (#1) 2023 COVID-19 Vaccine ( - season) 2024 HIB Vaccines Completed 03/28/1987 IPV Vaccines Completed 10/07/1990, 10/12, 1985, Additional history exists MMR Vaccines Completed 10/18/1997, 11/01/1986 Hepatitis B Vaccines Completed 04/13/2003, 10/18/1997, 11/26/1996 HPV Vaccines Aged Out No longer eligi ble based on patient's age to complete this topic Hepatitis A Vaccines Aged Out No long er eligible based on patient's age to complete this topic Men B Vaccine Aged Out No longer elig ible based on patient's age to complete this topic Meningococcal Vaccine Aged Out No sera shanice eligible based on patient's age to complete this topic Pneumococcal Vaccine Aged Out No long er eligible based on patient's age to complete this topic
== END 2024-07-13 16:19 | disposition home or self-care (01) ==
PROVIDERS: PCP Physician Assistant; Visit Provider Physician Assistant
DX: F90.0 Attention-deficit hyperactivity disorder, predominantly inattentive type (principal); Z71.6 Tobacco abuse counseling; F41.1 Generalized anxiety disorder; J45.20 Mild intermittent asthma, uncomplicated

== ENCOUNTER → 2024-07-13 15:40 | Outpatient (BNVA) | payer BC, SELFPAY | PROVIDERS: PCP Physician Assistant; Visit Provider Physician Assistant | DX: F90.0 Attention-deficit hyperactivity disorder, predominantly inattentive type (principal); F41.1 Generalized anxiety disorder; J45.20 Mild intermittent asthma, uncomplicated; Z79.899 Other long term (current) drug therapy; Z71.6 Tobacco abuse counseling | CPT/HCPCS: 96127; 96160 ==

== ENCOUNTER 2025-01-14 13:53 | Outpatient (AMB) | payer OTHER, SELFPAY ==
--- NOTE | 2025-01-14 14:15 | MHC.PC.OV ---
Vital Signs 01/14/25 14:17 Height 5 ft 9 in Weight 189 lb 4 oz BMI 27.9 BP 130/62 Blood Pressure Location Lt brachial Position Sitting Pulse 70 Pulse Source Pulse Oximeter Pulse Oximetry (%) 99 Oxygen Delivery Method Room Air Intake Visit Reasons: Annual Exam 3D Artist Required: No Accompanied by: Self / Same As Patient Allergies No Known Allergies Allergy (Verified 01/14/25 14:35) Medication List - Last Reconciled 01/14/25 by Dima Hill PA-C albuterol sulfate 90 mcg/actuation (ProAir HFA) 2 puffs inhalation Q6H PRN citalopram 30 mg (1.5 x 20 mg) PO DAILY 90 days dextroamphetamine-amphetamine 20 mg ER (Adderall XR) 20 mg PO QAM 30 days Tobacco use date assessed: 07/13/24 Dental Screening Dental Screen Date: 01/14/25 Did you have a dental visit in the last 12 months?: No Did you have a dental problem in the last 6 months where you did not have access to dental care?: No Was dental information given to patient?: Patient has dentist HPI Annual Exam HPI Details Patient is a 39-year-old male here today for an annual physical Patient's past medical history significant for ADHD, asthma, generalized anxiety disorder... . ADHD: Has had ADHD since childhood has been on Adderall for many years. Continues on will dose 20 mg Adderall without any side effect. 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 .. Generalized anxiety disorder: Continues on Celexa therapy with good effect. .. Smoker: Does admit to still smoking electronic cigarettes vape. Now interested in starting any nicotine replacement .. Asthma: Reports his asthma is very well controlled, occasion does have chest tightness at night though is controlled with an albuterol inhaler. Otherwise denies any asthma exacerbations. Vaccines: Up-to-date with COVID vaccine, tetanus vaccine, Declines flu vaccine , declines pneumonia vaccine [facility] Medical History Mood disorder Tobacco abuse Asthma Surgical History No pertinent past surgical history Family History Father Alcoholism Mother No problems noted. Paternal Grandfather Prostate cancer Social History Housing: Apartment Alcohol intake: never Patient Tobacco Use Status: Current everyday Tobacco user Tobacco use type: Cigarette Cigarettes Per Day: 12 e-Cigarette/Vaping Use: Never Used Second Hand Smoke Exposure: No Substance Use Type: Marijuana service: No Current occupational status: employed Current occupation: [employer] Cognitive needs: No Hearing needs: No Vision needs: Yes Questionnaire PHQ-9 Over the last 2 weeks, how often have you been bothered by any of the following problems? 1. Little interest or pleasure in doing things: not at all 2. Feeling down, depressed, or hopeless: not at all 3. Trouble falling or staying asleep, or sleeping too much: not at all 4. Feeling tired or having little energy: not at all 5. Poor appetite or overeating: not at all 6. Feeling bad about yourself - or that you are a failure or have let yourself or your family down: not at all 7. Trouble concentrating on things, such as reading the newspaper or watching television: not at all 8. Moving or speaking so slowly that other people could have noticed. Or the opposite - being so fidgety or restless that you have been moving around a lot more than usual: not at all 9. Thoughts that you would be better off or of hurting yourself in some way: not at all Total score: 0 Depression Screening Interpretation: Negative Depression Screening Done: Yes 00157 - PHQ-9 Billing: Yes Source: Developed by Drs. Reynold Amaya, Shanice Ngo, Huey Rivas and colleagues, with an educational letty from [employer]. Thrive Questionnaire Date Thrive assessed: 07/13/24 I am a: Parent/Caregiver What is your living situation today?: I choose not to answer this question Within the past 12 months, did the food you bought not last and you didn't have the money to get more?: I choose not to answer this question Within the past 12 months, did you worry whether your food would run out before you got money to buy more?: I choose not to answer this question Do you have trouble paying for medicines?: I choose not to answer this question Do you have trouble getting transportation to medical appointments?: I choose not to answer this question Do you have trouble paying your heating and electricity bill?: I choose not to answer this question Do you have trouble taking care of your child, family member or friend?: I choose not to answer this question Do you have trouble with day-to-day activities such as bathing, preparing meals, shopping, managing finances, etc.?: I choose not to answer this question Are you currently unemployed and looking for a job?: I choose not to answer this question Are you interested in more education?: I choose not to answer this question Please select the resources that you would like help with: None Currently or been in a relationship where the following occur: I choose not to answer THRIVE Score: 0 AUDIT C Alcohol Use Questionnaire (AUDIT-C) 1. How often do you have a drink containing alcohol?: Never Total Score: 0 DAVID-7 AMB Questionnaire DAVID-7 Date DAVID - 7 assessed: 07/13/24 Feeling nervous, anxious, or on edge: 0 = Not at all Not being able to stop or control worryin = Not at all Worrying too much about different things: 0 = Not at all Trouble relaxin = Not at all Being so restless that it is hard to sit still: 0 = Not at all Becoming easily annoyed or irritable: 0 = Not at all Feeling afraid as if something awful might happen: 0 = Not at all Total DAVID-7 score (0-4 normal; 5-9 mild; 10-14 moderate; 15-21 severe): 0 Source: Developed by Drs. Reynold Amaya, Shanice Ngo, Huey Rivas and colleagues, with an educational letty from [employer]. DAVID-7 Assessment Billing DAVID-7 Assessment Tool: DAVID-7 Assessment 06773 Review of Systems Const Denies body aches, Denies chills, Denies excessive sweating, Denies fatigue, Denies fever(s) and Denies headache(s) Eyes Denies blurry vision ENT Denies dysphagia, Denies vertigo, Denies dizziness, Denies headache(s), Denies hearing loss and Denies tinnitus Card Denies chest pain, Denies chest pain with activity, Denies syncope, Denies irregular heart rhythm and Denies dyspnea Resp Denies chest congestion, Denies cough, Denies hemoptysis, Denies dyspnea and Denies wheezing GI Denies abdominal pain, Denies melena, Denies hematochezia, Denies coffee ground emesis, Denies dysphagia, Denies diarrhea, Denies nausea and Denies vomiting Denies difficulty urinating, Denies dysuria, Denies urinary frequency, Denies urinary hesitancy and Denies urinary urgency Musc Denies arthralgias, Denies limited range of motion, Denies muscle cramps and Denies muscle weakness Skin/Breast Denies rash and Denies skin ulcer Neuro Denies Abnormal speech present, Denies confusion, Denies vertigo, Denies dizziness, Denies syncope, Denies headache(s), Denies memory loss and Denies seizure-like activity Psych Denies anxiety, Denies confusion, Denies depression, Denies memory loss, Denies panic attacks and Denies paranoia Endo Denies excessive sweating, Denies fatigue, Denies flushing, Denies polydipsia and Denies polyuria Aller/Immun Denies wheezing Physical exam (Primary Care) Vital Signs: Last Vital Signs Pulse 70 01/14/25 14:17 BP 130/62 01/14/25 14:17 Pulse Ox 99 01/14/25 14:17 Oxygen Delivery Method Room Air 01/14/25 14:17 BMI result Body Mass Index 27.9 Tobacco/Smoking Status: Tobacco use Status Tobacco use date assessed 07/13/24 01/14/25 14:22 Patient Tobacco Use Status Current everyday Tobacco 01/14/25 14:22 Tobacco use type Cigarette 01/14/25 14:22 e-Cigarette/Vaping Use Never Used 01/14/25 14:22 PHQ-9: PHQ-9 Score PHQ-9: Total score 0 01/14/25 14:22 Depression Screening Interpretation: Negative Thrive Assessment: Date of Thrive Assessment Date Thrive assessed 07/13/24 01/14/25 14:22 Currently or been in a relationship where the following occur: I choose not to answer Const General: cooperative, comfortable, no acute distress, alert and awake; No confusion Orientation/consciousness: oriented to person, oriented to place, patient oriented x3 and No confusion HENMT Head: Yes normocephalic Ears: external ears normal and TM's normal bilaterally Face and sinus: No sinus tenderness Mouth: Normal oral and palatal mucosa present and tongue normal Teeth and gingiva: dentition normal and gingiva normal Throat: Yes posterior oropharynx normal, Yes tonsils normal and Yes uvula midline Eyes Conjunctivae: conjunctivae normal Sclerae: sclerae normal Pupils: Equal, round and reactive pupils present EOM: EOMs intact bilaterally Direct Ophthalmoscopy: No no photophobia Neck Neck: Yes no lymphadenopathy, No tender and Yes no JVD Thyroid: Thyroid normal Carotids: no bruits Chest Chest palpation & inspection: no tenderness Resp Effort & Inspection: normal respiratory effort, no audible wheezes, not labored and no stridor Auscultation: no crackles, no rales, no rhonchi and no wheezes Cardio Jugular venous distension: no JVD Rate: regular rate, not bradycardic and not tachycardic Rhythm: regular rhythm Bruits: no carotid bruits Peripheral pulses: Peripheral pulses 2+ throughout GI Inspection: Yes normal to inspection, No abdominal wall ecchymosis and No visible herniation Palpation (GI): Soft to palpation, nontender, no guarding, not rigid and No hepatosplenomegaly present Auscultation: normoactive bowel sounds General: Yes no CVA tenderness Back/Spine/Pelvis Back: no CVA tenderness and No back tenderness Cervical Spine: cervical ROM normal Thoracic/Lumbar Spine: thoracic and lumbar spine normal to inspection, straight leg raise negative bilaterally, No thoraco-lumbar ROM limited and No lumbar spinal tenderness Skin Lesions: no lesions Rashes: no rashes Wounds: no wounds Neuro General: oriented to person, oriented to place, patient oriented x3, CN's II-XI intact bilaterally and No confusion Cranial nerves: Yes Equal, round and reactive pupils present and Yes Normal accommodation reflex present Cognition (Neuro): normal cognition Speech: No Abnormal speech present Gait exam (Neuro): Normal gait present Motor exam (neuro): 5/5 motor strength present throughout Extrem Right upper extremity: full ROM; no cyanosis Left upper extremity: full ROM; no cyanosis Right lower extremity: no edema Left lower extremity: no edema Psych Appearance: grossly normal Mental Status: mental status grossly normal Affect: normal affect Attitude: cooperative Thought process: Normal thought process present Coding Level of Care Code Est Pt Prev Care 18-39y([id number]) Diagnoses Physical exam Z00.00 Attention deficit hyperactivity disorder (ADHD), predominantly inattentive type F90.0 Attention deficit-hyperactivity disorder type: predominantly inattentive Generalized anxiety disorder F41.1 Mild intermittent asthma without complication J45.20 Asthma severity: mild Asthma persistence: intermittent Asthma complication type: uncomplicated Tobacco abuse Z72.0 Low TSH level R79.89 Additional Codes DAVID-7 Assessment Billing - DAVID-7 Assessment Tool: DAVID-7 Assessment 27087 ([id number]) PHQ-9 - 40022 - PHQ-9 Billing: Yes ([id number]) Assessment & Plan Assessment & Plan (1) Physical exam: Comment: Reminded pt to get labs done Due for dental and eye exam Code(s): Z00.00 - Encounter for general adult medical examination without abnormal findings Category: Medical Plan: As per HPI (2) ADHD (attention deficit hyperactivity disorder): Code(s): F90.9 - Attention-deficit hyperactivity disorder, unspecified type Category: Medical Qualifiers: Attention deficit-hyperactivity disorder type: predominantly inattentive Qualified Code(s): F90.0 - Attention-deficit hyperactivity disorder, predominantly inattentive type Plan: Patient has been doing well on Adderall 20 mg sent to release without any side effects. Continues to work in aerospace field. (3) Generalized anxiety disorder: Code(s): F41.1 - Generalized anxiety disorder Category: Medical Plan: Patient's DAVID-7 score 0, has had a history of anxiety to which he takes SSRI therapy for with good effect. He is not interested in talking to a mental health therapist. (4) Asthma: Code(s): J45.909 - Unspecified asthma, uncomplicated Category: Medical Qualifiers: Asthma severity: mild Asthma persistence: intermittent Asthma complication type: uncomplicated Qualified Code(s): J45.20 - Mild intermittent asthma, uncomplicated Plan: Patient's asthma is reported as well controlled. Does have access to an albuterol inhaler though rarely has to use it. He denies any nighttime awakenings with asthma symptoms or recent asthma exacerbations. (5) Tobacco abuse: Code(s): Z72.0 - Tobacco use Category: Medical Plan: Continues to use E cigarettes. Patient does understand he needs to quit smoking though at this time not interested in nicotine replacement (6) Low TSH level: Code(s): R79.89 - Other specified abnormal findings of blood chemistry Category: Medical Plan: Most recent TSH low, normal T4. Has noted to have weight loss to which he attributes to poor eating habits and long working hours. Orders: Orders Complete Blood Count no Diff Today Z13.1 - Encounter for screening for diabetes mellitus Comprehensive [place]. Panel Fast Today Z13.1 - Encounter for screening for diabetes mellitus T4 Thyroxine Today R79.89 - Other specified abnormal findings of blood chemistry
[2025-01-14 14:17] VITALS: BP 130/62; PULSE 70; O2SAT 99; BMI 27.9
--- OUTSIDE RECORDS SUMMARY | 2025-01-14 15:08 | XMS_ITS | Clinical Summary ---
Author Organization [facility] Address [address] [place] [id number] Phone Care Team Providers Care Tire Technician Name Role Phone Unavailable Primary Care Provider [...] 07/12/1999 07/11/1999, 10/07/1990, 11/01/1986, Additional history exists HPV Vaccines (1 - 3-dose SCDM series) 2012 Influenza Vaccines (#1) 2024 COVID-19 Vaccine ( - season) 2025 HIB Vaccines Completed 03/28/1987 IPV Vaccines Completed 10/07/1990, 10/12, 1985, Additional history exists MMR Vaccines Completed 10/18/1997, 11/01/1986 Hepatitis B Vaccines Completed 04/13/2003, 10/18/1997, 11/26/1996 Hepatitis A Vaccines Aged Out No long [...]
== END 2025-01-14 14:55 | disposition home or self-care (01) ==
LOC: HO.HMCH 13:54
PROVIDERS: PCP Physician Assistant; Visit Provider Physician Assistant
DX: Z00.00 Encounter for general adult medical examination without abnormal findings (principal); F90.0 Attention-deficit hyperactivity disorder, predominantly inattentive type; F41.1 Generalized anxiety disorder; J45.20 Mild intermittent asthma, uncomplicated; Z72.0 Tobacco use; R79.89 Other specified abnormal findings of blood chemistry

== ENCOUNTER → 2025-01-14 13:53 | Outpatient (BNVA) | payer OTHER, SELFPAY | PROVIDERS: PCP Physician Assistant; Visit Provider Physician Assistant | DX: Z00.00 Encounter for general adult medical examination without abnormal findings (principal); F90.0 Attention-deficit hyperactivity disorder, predominantly inattentive type; F41.1 Generalized anxiety disorder; F17.290 Nicotine dependence, other tobacco product, uncomplicated; J45.20 Mild intermittent asthma, uncomplicated; R79.89 Other specified abnormal findings of blood chemistry | CPT/HCPCS: 96127 ==